=== PATIENT | male | born 1970 | race Caucasian/White ===

== ENCOUNTER 2021-02-01 18:26 | Inpatient (IN) | payer MEDICAID, OTHER ==
[~2021-02-01] VITALS: Ht 172.7 cm; Wt 114.3 kg
[~2021-02-01 18:26] MED LIST: CLOT15CR27 TP; HYDR4CRE2 TOP; INSU100V SUBCUT; INSU100V7 SQ; LACT1CAP69 PO; LOPE2CAP40 PO; MAG30ORA PO; METO-295 PO; MULT-1119 PO; PANT40TA2 PO; SITA100T PO; Vancomycin Hcl PO
--- NOTE | 2021-02-01 18:41 | NUR ---
PATIENT AND UNABLE TO PROVIDE INFORMATION ABOUT CURRENT HOME MEDICATIONS. PT'S STATED SHE WILL ATTEMPT TO GET THE INFORMATION.
--- NOTE | 2021-02-01 18:42 | NUR ---
PT IS IN ROOM #1A. DR BUCHANAN EVALUATED THE PT.
[2021-02-01] MEDS ORDERED: MORPHINE SULFATE 2 MG/1 ML DISP.SYRIN IV ONE (19:00)
[2021-02-01] MEDS ORDERED: FURO-151 PO (19:18)
[2021-02-01] MEDS ORDERED: MORPHINE SULFATE 4 MG/1 ML DISP.SYRIN ONE ×2 (19:20→20:05)
[2021-02-01] MEDS ORDERED: FERR325T28 PO (19:20)
[2021-02-01] MEDS ORDERED: POTA10CA43 PO (19:20)
[2021-02-01] MEDS ORDERED: GABA300C PO (19:21)
[2021-02-01] MEDS ORDERED: ATOR40TA PO (19:21)
[2021-02-01 19:24] LABS: BASOPHILS # (AUTO) 0.1 K/uL (0.0-8.0); BASOPHILS % (AUTO) 1.3 % (0.0-2.0); EOSINOPHILS # (AUTO) 0.6 K/uL (0.0-0.7); EOSINOPHILS % (AUTO) 8.2 % (0.0-7.0); HEMATOCRIT 31.8 % (36.7-47.1); HEMOGLOBIN 10.4 g/dL (12.5-16.3); LYMPHOCYTES # (AUTO) 1.7 K/uL (20.0-40.0); LYMPHOCYTES % (AUTO) 22.2 % (20.5-51.5); MEAN CORPUSCULAR HEMOGLOBIN 30.1 uug (23.8-33.4); MEAN CORPUSCULAR HGB CONC 33 g/dL (32.5-36.3); MEAN CORPUSCULAR VOLUME 91.9 fL (73.0-96.2); MONOCYTES # (AUTO) 0.6 K/uL (2.0-10.0); MONOCYTES % (AUTO) 7.4 % (0.0-11.0); NEUTROPHILS # (AUTO) 4.7 K/uL (1.8-8.9); NEUTROPHILS % (AUTO) 60.9 % (38.5-71.5); PLATELET COUNT (AUTO) 171 K/uL (152-348); RED BLOOD CELL COUNT(AUTO) 3.47 MIL/uL (4.06-5.63); WHITE BLOOD COUNT (AUTO) 7.8 K/uL (3.6-10.2)
[2021-02-01 19:36] LABS: BILIRUBIN,DIRECT 0.1 mg/dL (0.0-0.2); BILIRUBIN,TOTAL 0.2 mg/dL (0.2-1.0); CREATININE 3.7 mg/dL (0.6-1.3); POTASSIUM 4.4 mmol/L (3.5-5.1); TOTAL PROTEIN, SERUM 6.7 g/dL (6.4-8.2)
[2021-02-01] MEDS ORDERED: FUROSEMIDE 40 MG/4 ML VIAL IV ONE (20:00)
[2021-02-01] MEDS ORDERED: MORPHINE SULFATE 4 MG/1 ML DISP.SYRIN IV ONE (20:00)
[2021-02-01] MEDS ORDERED: ASPIRIN 81 MG TAB.CHEW PO ONE (20:00)
[2021-02-01] MEDS ORDERED: MAG HYDROX/AL HYDROX/SIMETH 30 ML LIQUID UDC PO ONE (20:00)
--- NOTE | 2021-02-01 20:00 | NUR ---
Patient transferred to Room 302 under the care of Ebony SEARS. Belongings with patient. VSS.
[2021-02-01] MEDS ORDERED: MAG HYDROX/AL HYDROX/SIMETH 30 ML LIQUID UDC ONE (20:05)
[2021-02-01] MEDS ORDERED: ONDANSETRON 4 MG/2 ML VIAL IV PRN (21:30)
[2021-02-01] MEDS ORDERED: Z GUARD REMEDY PASTE 57 GM TUBE TOP PRN (21:30)
[2021-02-01] MEDS ORDERED: METOCLOPRAMIDE HCL 10 MG TABLET PO PRN (21:30)
[2021-02-01] MEDS ORDERED: MAG HYDROX/AL HYDROX/SIMETH 30 ML LIQUID UDC PO PRN (21:30)
[2021-02-01] MEDS ORDERED: MAGNESIUM HYDROXIDE 30 ML LIQUID UDC PO PRN (21:30)
[2021-02-01] MEDS ORDERED: ZOLPIDEM 5 MG TABLET PO PRN (21:30)
[2021-02-01] MEDS ORDERED: ACETAMINOPHEN 325 MG TABLET PO PRN (21:30)
[2021-02-01 21:50] VITALS: BP 167/85
--- NOTE | 2021-02-01 21:50 | NUR ---
Admitted a 50 y/o male to telemetry with admitting diagnosis of volume overload with secondary diagnosis of ESRD. Pt denies any pain or discomfort, no s/s of respiratory distress. IV access intact and patent. Admission care rendered, safety measures initiated, call light within reach.
[2021-02-02] VITALS: BP 129/56
[2021-02-02] MEDS ORDERED: INSULIN REGULAR, HUMAN 300 UNIT/3 ML VIAL SQ PRN ×2 (03:30→12:30)
[2021-02-02] MEDS ORDERED: DEXTROSE 50% 50 ML DISP.SYRIN IV PRN ×2 (03:30→12:30)
[2021-02-02] MEDS: HYDROCODONE/APAP 5-325MG TABLET PO PRN ×2 (03:48→10:01)
[2021-02-02 04:00] VITALS: BP 130/56
[2021-02-02] MEDS: VANCOMYCIN FOR PO/GT/NG USE PO SCH ×5 (06:00→23:33)
--- NOTE | 2021-02-02 06:20 | NUR ---
Pt slept intermittently through the night. No s/s of respiratory distress on room air. NSR on tele at 78/min. IV access intact and patent. Pain medication given as ordered, medication tolerated well. Wound care done. Safety measures initiated, call light within reach, all needs attended.
[2021-02-02 06:28] LABS: BASOPHILS # (AUTO) 0.1 K/uL (0.0-8.0); BASOPHILS % (AUTO) 1.3 % (0.0-2.0); EOSINOPHILS # (AUTO) 0.5 K/uL (0.0-0.7); EOSINOPHILS % (AUTO) 9.2 % (0.0-7.0); HEMATOCRIT 25.5 % (36.7-47.1); HEMOGLOBIN 8.4 g/dL (12.5-16.3); LYMPHOCYTES # (AUTO) 1.6 K/uL (20.0-40.0); LYMPHOCYTES % (AUTO) 28.3 % (20.5-51.5); MEAN CORPUSCULAR HEMOGLOBIN 30.7 uug (23.8-33.4); MEAN CORPUSCULAR HGB CONC 33 g/dL (32.5-36.3); MEAN CORPUSCULAR VOLUME 92.8 fL (73.0-96.2); MONOCYTES # (AUTO) 0.5 K/uL (2.0-10.0); MONOCYTES % (AUTO) 8.7 % (0.0-11.0); NEUTROPHILS # (AUTO) 3.1 K/uL (1.8-8.9); NEUTROPHILS % (AUTO) 52.5 % (38.5-71.5); PLATELET COUNT (AUTO) 146 K/uL (152-348); RED BLOOD CELL COUNT(AUTO) 2.75 MIL/uL (4.06-5.63); WHITE BLOOD COUNT (AUTO) 5.8 K/uL (3.6-10.2)
[2021-02-02 06:42] LABS: CREATININE 4.1 mg/dL (0.6-1.3); MAGNESIUM 2.3 mg/dL (1.8-2.4); PHOSPHOROUS 5.2 mg/dL (2.5-4.9); POTASSIUM 4.2 mmol/L (3.5-5.1)
[2021-02-02] MEDS: BLOOD SUGAR DIAGNOSTIC 1 EACH STRIP VI SCH ×4 (07:32→21:05)
[2021-02-02] MEDS ORDERED: INSULIN REGULAR, HUMAN 300 UNIT/3 ML VIAL SQ SCH (08:00)
[2021-02-02] MEDS ORDERED: INSULIN LISPRO 1000 UNITS/10 ML VIAL(HUMALOG) SQ SCH (08:00)
--- NOTE | 2021-02-02 08:00 | NUR ---
received change of shift report on pt. c/o diarrhea x2 days, pain on the lower legs,,pain medication given as prescribed. awake alert and oriented x4, on room air, NSR on tele monitor, no signs of distress, pt ambulatory, urinal at bedside, BRP, pt had cassandra lower leg wounds, dressings clean dry and intact. IV access on the left FA 20g SL. bed in low and locked position, call light within reach.
[2021-02-02] MEDS ORDERED: CLOTRIMAZOLE 1% CREAM 30 GM TUBE TP SCH (09:00)
[2021-02-02] MEDS ORDERED: POTASSIUM CHLORIDE 10 MEQ TAB.PRT.SR PO SCH ×2 (09:00)
[2021-02-02] MEDS ORDERED: [UNRECOGNIZED DRUG - OTHER] TOP SCH (09:00)
[2021-02-02] MEDS ORDERED: INSULIN GLARGINE,HUM 300 UNITS/3 ML CARTRIDGE SQ SCH (09:00)
[2021-02-02] MEDS ORDERED: LINAGLIPTIN 5 MG TABLET PO SCH (09:00)
[2021-02-02] MEDS ORDERED: PRAMOXINE HCL TOP SCH (09:00)
[2021-02-02] MEDS: FUROSEMIDE 40 MG/4 ML VIAL IV SCH (09:08)
[2021-02-02] MEDS: FERROUS SULFATE 325 MG TABEC PO SCH (09:08)
[2021-02-02] MEDS: GABAPENTIN 300 MG CAPSULE PO SCH (09:08)
[2021-02-02] MEDS: CULTURELLE CAPSULE PO SCH ×2 (09:08→17:25)
[2021-02-02] MEDS: PANTOPRAZOLE SODIUM 40 MG TABLET.DR PO SCH (09:08)
[2021-02-02] MEDS: MULTIVITAMINS,THERAPEUTIC TABLET PO SCH (09:08)
--- NOTE | 2021-02-02 10:00 | NUR ---
IV access infiltrated, removed and new access on the right FA 20g SL. Addendum: 02/02/21 at 1256 by ERVIN VINES RN 22g
[2021-02-02 11:40] VITALS: BP 139/74
[2021-02-02] MEDS ORDERED: SORBITOL 70% SOLUTION 30 ML UDC PO ONE (12:15)
[2021-02-02] MEDS ORDERED: LACTULOSE 20 G/30 ML LIQUID UDC PO ONE (12:15)
--- NOTE | 2021-02-02 12:17 | NUR ---
WOUND CARE CONSULT: PT PRESENTS WITH DIABETIC ULCERS TO FEET, PRESENT ON ADMISSION. DPM CONSULT WAS CALLED TO DR AVILA BY CARL DOMINGUEZ DNP. PT IS INDEPENDENT WITH BED MOBILITY AND IS CONTINENT. WILL SEE PRN.
[2021-02-02 15:42] LABS: *OCCULT BLOOD STOOL POSITIVE (NEGATIVE)
[2021-02-02 16:00] VITALS: BP 134/71
[2021-02-02] MEDS: ATORVASTATIN 40 MG TABLET PO SCH (17:25)
--- NOTE | 2021-02-02 18:41 | NUR ---
pt in bed resting, awake alert and oriented x4. pt has cassandra wounds on feet covered with dressing, dry, clean and intact. NSR on tele monitor, on room air, pt ambulatory, BRP, stool sample collected, IV access on the right forarm 22g SL intact, patent. pt to have CT C/A/P with contrast 02/03 at 0800 before dialysis. bed in low and locked position, call light within reach, will endorse to oncoming nurse.
--- NOTE | 2021-02-02 20:00 | NUR ---
AWAKE,ALERT COOPERATIVE, KNOWS HE IS GOING FOR CT OF ABDOMEN AND CHEST BILATERAL LEG SWOLLEN WITH DRESSING NOTED,NPO AFTER MIDNITE TOLD PATIENT,HAD 2 DIARHEA
[2021-02-02 20:04] VITALS: BP 123/75
[2021-02-02 20:48] LABS: FERRITIN 291 ng/mL (26-388)
[2021-02-02 20:49] LABS: IRON, SERUM 24 ug/dL (50-175)
[2021-02-02] MEDS: INSULIN GLARGINE,HUM 300 UNITS/3 ML CARTRIDGE SQ SCH (21:04)
[2021-02-03 00:04] VITALS: BP 154/99
[2021-02-03 04:00] VITALS: BP 103/69
[2021-02-03 04:04] VITALS: BP 121/55
[2021-02-03] MEDS: VANCOMYCIN FOR PO/GT/NG USE PO SCH ×4 (06:26→23:54)
[2021-02-03] MEDS: PANTOPRAZOLE SODIUM 40 MG TABLET.DR PO SCH (06:26)
[2021-02-03] MEDS: BLOOD SUGAR DIAGNOSTIC 1 EACH STRIP VI SCH ×4 (06:28→21:29)
[2021-02-03 06:50] LABS: BASOPHILS # (AUTO) 0.1 K/uL (0.0-8.0); BASOPHILS % (AUTO) 1.3 % (0.0-2.0); EOSINOPHILS # (AUTO) 0.5 K/uL (0.0-0.7); EOSINOPHILS % (AUTO) 8.6 % (0.0-7.0); HEMATOCRIT 28.5 % (36.7-47.1); HEMOGLOBIN 9.4 g/dL (12.5-16.3); LYMPHOCYTES # (AUTO) 1.4 K/uL (20.0-40.0); MEAN CORPUSCULAR HEMOGLOBIN 30.8 uug (23.8-33.4); MEAN CORPUSCULAR HGB CONC 33 g/dL (32.5-36.3); MEAN CORPUSCULAR VOLUME 93.3 fL (73.0-96.2); MONOCYTES # (AUTO) 0.4 K/uL (2.0-10.0); MONOCYTES % (AUTO) 7.1 % (0.0-11.0); NEUTROPHILS # (AUTO) 3.2 K/uL (1.8-8.9); PLATELET COUNT (AUTO) 172 K/uL (152-348); RED BLOOD CELL COUNT(AUTO) 3.06 MIL/uL (4.06-5.63); WHITE BLOOD COUNT (AUTO) 5.4 K/uL (3.6-10.2)
--- NOTE | 2021-02-03 06:59 | NUR ---
BLOOD SUGAR 65 CHECKED AFTER 15 MINUTES 73 PT FELT WEAK THIRD ACCUCHECH 77. STILL COMPLAINING OF NOT FEELING GOOD, FIRST TIME TO HAVE BLOOOD SUGAR IS TOO LOW VERBALIZED. PT IS NPO FOR CAT SCAN OF ABDOMEN AND CHEST.WANTED TO EAT.BUT NPO SO D50 GIVEN.
[2021-02-03 07:06] LABS: HEPATITIS B SURFACE AB Non Reactive (.); HEPATITIS B SURFACE AG Negative (Negative)
[2021-02-03 07:26] LABS: THYROID STIMULATING HORMONE 0.975 mIU/mL (0.358-3.740)
[2021-02-03 07:44] LABS: MAGNESIUM 2.4 mg/dL (1.8-2.4); PHOSPHOROUS 6.2 mg/dL (2.5-4.9); POTASSIUM 4.3 mmol/L (3.5-5.1)
[2021-02-03] MEDS ORDERED: IOHEXOL 300MG/ML 100 ML INFUS..BTL ONE (08:08)
[2021-02-03] MEDS ORDERED: IV NORMAL SALINE 250 ML IV ONE (08:08)
[2021-02-03] MEDS ORDERED: SWABABLE VALVE TRANSFER SET EA MC ONE (08:08)
[2021-02-03] MEDS: INSULIN GLARGINE,HUM 300 UNITS/3 ML CARTRIDGE SQ SCH (09:00)
[2021-02-03] MEDS ORDERED: DIATR MEGLU/DIATRIZOATE SODIUM 30 ML BOTTLE ONE (09:14)
[2021-02-03] MEDS ORDERED: BARIUM SULFATE 450 ML ORAL.SUSP ONE (09:14)
--- NOTE | 2021-02-03 09:15 | NUR ---
PATIENT IS AWAKE ALERT AND ORIENTED REMAINS NPO AND IS TAKING HIS ORAL CONTRAST WAS GIVEN BY THE RADIOLOGY DEPT AWAITING FOR HIS CT OF THE ABDOMEN AND PELVIS ORDERED AND WILL ADMINISTER HIS AM MEDICATIONS SOON THE CT TESTS ARE DONE ORDERED
--- NOTE | 2021-02-03 10:33 | NUR ---
PATIENT PICKED UP BY W/CHAIR TO THE RADIOLOGY FOR CT SCAN TESTS ORDERED.
[2021-02-03] MEDS: MULTIVITAMINS,THERAPEUTIC TABLET PO SCH (11:16)
[2021-02-03] MEDS: GABAPENTIN 300 MG CAPSULE PO SCH (11:16)
[2021-02-03] MEDS: FERROUS SULFATE 325 MG TABEC PO SCH (11:16)
[2021-02-03] MEDS: FUROSEMIDE 40 MG/4 ML VIAL IV SCH (11:17)
[2021-02-03] MEDS: CULTURELLE CAPSULE PO SCH ×2 (11:17→17:44)
[2021-02-03] MEDS: HYDROCODONE/APAP 5-325MG TABLET PO PRN (11:19)
[2021-02-03 12:00] VITALS: BP 170/79
--- NOTE | 2021-02-03 12:00 | NUR ---
STONE DRESSER HERE AND DIALYSIS STARTED ORDERED PERMA CATH RIGHT UPPER CHEST REMAIN INTACT AT THIS TIME
--- NOTE | 2021-02-03 13:00 | NUR ---
CALL RECEIVED FROM PATIENTS STATED THAT PATIENT CALLED HIM AND STATED THAT HE WANTED TO GO TO THE BATHROOM TO MOVE HIS BOWEL BUT WAS NOT ALLOWED TO SHE WAS VERY ANGRY AND STATED THAT HER WILL PULL OUT HIS DIALYSIS CATH AND WILL LEAVE THE HOSPITAL IF WE DO NOT ALLOW HIM TO GO USE THE BATHROOM AND SHE ALSO WENT FAR SAYING THAT IF ANYTHING HAPPENS TO HER THEN HIS BLOOD WILL BE ON MY HANDS SO I TRIED MY BEST TO CALM HER DOWN AND ASKED HER IF SHE COULD GIVE ME A CHANCE TO GO AND CHECK TO SEE WHAT WAS GOING ON IN THE ROOM AND THE PATIENT IS IN THE ROOM HAVING DIALYSIS.CONTINUED TO SCREAM AT ME SO I FINALLY HUNG UP THE PHONE AND RAN INTO THE ROOM AND PATIENT STATED TO ME THAT HE WANTED TO USE THE TOILET SO I OFFERED HIM A BEDPAN INSTEAD SINCE HE WAS IN THE MIDDLE OF THE DIALYSIS BUT HE DECLINED AND STATED THAT HE WANTED THE DIALYSIS STOPPED.SO DIALYSIS STOPPED AT THIS TIME AND PATIENT ASSISTED INTO THE TOILET.PER THE CONSUMER PRODUCT ADVISOR HE REMOVED ONE LITER OF FLUID AT THIS TIME.
--- NOTE | 2021-02-03 14:49 | NUR ---
PATIENT SEEN AND EXAMINED BY CARL DOMINGUEZ DNP WITH NO NEW ORDERS AT THIS TIME SHE IS AWARE THAT PATIENT WILL NOT ALLOW THE TOWER SUPERVISOR TO FINISH DIALYSIS HE ONLY HAD DIALYSIS FOR ONE HOUR AND ONE LITER REMOVED.
--- NOTE | 2021-02-03 15:40 | NUR ---
DR VISHAL GUZMAN HERE SEEN PATIENT DID A BEDSIDE DEBRIDEMENT WITH NEW TX ORDERS ALSO CULTURE OFTHE WOUNDS SENT ORDERED.
[2021-02-03 15:53] VITALS: BP 134/80
--- NOTE | 2021-02-03 16:20 | NUR ---
BLOOD SUGAR AT THIS TIME IS 69 PATIENT IS ALERT ORIENTED AND VERBALLY RESPONSIVE GAVE HIM SOME CRACKERS AND APPLE JUICE AND HE TOLERATED WELL WILL RECHECK HIS BLOOD SUGAR.
[2021-02-03] MEDS: ATORVASTATIN 40 MG TABLET PO SCH (17:44)
--- NOTE | 2021-02-03 17:57 | NUR ---
BLOOD SUGAR AT THIS TIME IS 83 PATIENT IS ALERT AND ORIENTED DENIES DISCOMFORTS HAS NO S/S OF HYPOGLYCEMIC REACTIONS AT THIS TIME EATING HIS DINNER
--- NOTE | 2021-02-03 20:00 | NUR ---
AWAKE,ALERT COOPERATIVE, NO COMPLAINTS OF PAIN, LOWER EXTREMITIES WOUND COVERED WITH HIMANSHU WRAP. SNACKS GIVEN
[2021-02-03 20:21] VITALS: BP 146/80
[2021-02-04] VITALS: BP 145/71
[2021-02-04 04:00] VITALS: BP 117/59
[2021-02-04] MEDS: HYDROCODONE/APAP 5-325MG TABLET PO PRN (04:14)
--- NOTE | 2021-02-04 05:36 | NUR ---
slept most of the nite,medicated for abdominal pain with norco x1 in no acute distress.
[2021-02-04] MEDS: VANCOMYCIN FOR PO/GT/NG USE PO SCH ×3 (06:00→17:07)
[2021-02-04 06:23] LABS: BASOPHILS # (AUTO) 0.1 K/uL (0.0-8.0); BASOPHILS % (AUTO) 1.8 % (0.0-2.0); EOSINOPHILS # (AUTO) 0.4 K/uL (0.0-0.7); EOSINOPHILS % (AUTO) 8.7 % (0.0-7.0); HEMATOCRIT 27.7 % (36.7-47.1); HEMOGLOBIN 8.9 g/dL (12.5-16.3); LYMPHOCYTES # (AUTO) 1.3 K/uL (20.0-40.0); MEAN CORPUSCULAR HEMOGLOBIN 29.8 uug (23.8-33.4); MEAN CORPUSCULAR HGB CONC 32 g/dL (32.5-36.3); MEAN CORPUSCULAR VOLUME 93.3 fL (73.0-96.2); MONOCYTES # (AUTO) 0.4 K/uL (2.0-10.0); MONOCYTES % (AUTO) 7.6 % (0.0-11.0); NEUTROPHILS # (AUTO) 2.7 K/uL (1.8-8.9); NEUTROPHILS % (AUTO) 54.9 % (38.5-71.5); PLATELET COUNT (AUTO) 166 K/uL (152-348); RED BLOOD CELL COUNT(AUTO) 2.97 MIL/uL (4.06-5.63); WHITE BLOOD COUNT (AUTO) 4.9 K/uL (3.6-10.2)
[2021-02-04 06:29] LABS: CREATININE 5.2 mg/dL (0.6-1.3); POTASSIUM 4.4 mmol/L (3.5-5.1)
[2021-02-04 08:00] VITALS: BP 144/60
[2021-02-04] MEDS: BLOOD SUGAR DIAGNOSTIC 1 EACH STRIP VI SCH ×4 (08:11→21:08)
[2021-02-04] MEDS: PANTOPRAZOLE SODIUM 40 MG TABLET.DR PO SCH (08:12)
[2021-02-04] MEDS: GABAPENTIN 300 MG CAPSULE PO SCH (08:39)
[2021-02-04] MEDS: MULTIVITAMINS,THERAPEUTIC TABLET PO SCH (08:39)
[2021-02-04] MEDS: FERROUS SULFATE 325 MG TABEC PO SCH (08:39)
[2021-02-04] MEDS: CULTURELLE CAPSULE PO SCH ×2 (08:39→17:07)
[2021-02-04] MEDS ORDERED: LORAZEPAM 2 MG/1 ML VIAL IV PRN (11:15)
--- NOTE | 2021-02-04 12:31 | NUR ---
RECEIVED ORDER FROM ANGELICA FOR MIDLINE BECAUSE PATIENT WILL BE ON FERRILICT PER DR JEONG ORDER WESLEY NOTIFIED AND ORDERED PER WESLEY THE MIDLINE NURSE WILL BE HERE ABOUT 1430
--- NOTE | 2021-02-04 12:54 | NUR ---
DIALYSIS IN PROGRESS AT THIS TIME ORDERED ATIVAN WAS GIVEN PRIOR TO STARTING DIALYSIS ORDERED.
[2021-02-04] MEDS: SOD FERRIC GLUC COMPLX/SUCROSE 125 MG in IV NORMAL SALINE 100 ML IV SCH (14:47)
--- NOTE | 2021-02-04 15:00 | NUR ---
PATIENT IS SLEEPING ON AND OFF STATED FEELS BETTER WITH THE ATIVAN MIDLINE INSERTED ORDERED PATENT FLUSHED PER PROTOCOL DIALYSIS COMPLETED ORDERED AND 2000 ML REMOVED PATIENT TOLERATED PROCEDURE WELL.
--- NOTE | 2021-02-04 15:30 | NUR ---
SEEN BY CARL DOMINGUEZ DNP WITH NO NEW ORDERS AT THIS TIME.
[2021-02-04 16:15] VITALS: BP 135/63
[2021-02-04] MEDS: FUROSEMIDE 40 MG/4 ML VIAL IV SCH (17:07)
[2021-02-04] MEDS: ATORVASTATIN 40 MG TABLET PO SCH (17:07)
--- NOTE | 2021-02-04 18:47 | NUR ---
PATIENT INFORMED OF ORDER FOR MRI OF HIS LEFT FOOT TO RULE OUT OSTEO AND HE CONSCENTED.AWAITING FOR CALL FROM THE MRI TO SCHEDULE.
--- NOTE | 2021-02-04 19:30 | NUR ---
AWAKE, ALERT X3 DR ARIZA EXPLAINED THE PROCEDURES TO THE PATIENT.PATIENT UNDERSTOOD THE EXPLANATION.RESTING COMFORTABLY,NO COMPLAINTS MADE.
[2021-02-04 20:32] VITALS: BP 155/69
[2021-02-05] MEDS: VANCOMYCIN FOR PO/GT/NG USE PO SCH ×4 (00:21→17:24)
[2021-02-05] MEDS: HYDROCODONE/APAP 5-325MG TABLET PO PRN ×4 (00:25→20:37)
[2021-02-05 00:54] VITALS: BP 151/72
[2021-02-05 05:24] VITALS: BP 126/51
[2021-02-05] MEDS: PANTOPRAZOLE SODIUM 40 MG TABLET.DR PO SCH (06:09)
[2021-02-05] MEDS: BLOOD SUGAR DIAGNOSTIC 1 EACH STRIP VI SCH ×3 (06:25→16:44)
--- NOTE | 2021-02-05 06:42 | NUR ---
SLEPT AT SHORT INTERVALS.MEDICATED I NORCO FOR ABDOMINAL PAIN. NO LOOSE BOWEL NOTED.
[2021-02-05 06:57] LABS: BASOPHILS # (AUTO) 0.1 K/uL (0.0-8.0); BASOPHILS % (AUTO) 1.5 % (0.0-2.0); EOSINOPHILS # (AUTO) 0.4 K/uL (0.0-0.7); EOSINOPHILS % (AUTO) 9.1 % (0.0-7.0); HEMATOCRIT 26.3 % (36.7-47.1); HEMOGLOBIN 8.4 g/dL (12.5-16.3); LYMPHOCYTES # (AUTO) 1.6 K/uL (20.0-40.0); LYMPHOCYTES % (AUTO) 35.3 % (20.5-51.5); MEAN CORPUSCULAR HEMOGLOBIN 29.7 uug (23.8-33.4); MEAN CORPUSCULAR HGB CONC 32 g/dL (32.5-36.3); MEAN CORPUSCULAR VOLUME 92.9 fL (73.0-96.2); MONOCYTES # (AUTO) 0.4 K/uL (2.0-10.0); MONOCYTES % (AUTO) 8.5 % (0.0-11.0); NEUTROPHILS # (AUTO) 2.1 K/uL (1.8-8.9); NEUTROPHILS % (AUTO) 45.6 % (38.5-71.5); PLATELET COUNT (AUTO) 140 K/uL (152-348); RED BLOOD CELL COUNT(AUTO) 2.83 MIL/uL (4.06-5.63); WHITE BLOOD COUNT (AUTO) 4.7 K/uL (3.6-10.2)
[2021-02-05 07:04] LABS: CREATININE 4.7 mg/dL (0.6-1.3); POTASSIUM 4.3 mmol/L (3.5-5.1)
--- NOTE | 2021-02-05 08:00 | NUR ---
CALL RECEIVED FROM VANDANA STATED THAT HE HAS OPENING FOR THE PATIENT FOR THE MRI AT 1000 TODAY ORDERED WILL CALL THE AMBULANCE
[2021-02-05] MEDS: MULTIVITAMINS,THERAPEUTIC TABLET PO SCH (08:12)
[2021-02-05] MEDS: GABAPENTIN 300 MG CAPSULE PO SCH (08:12)
[2021-02-05] MEDS: FERROUS SULFATE 325 MG TABEC PO SCH (08:12)
[2021-02-05] MEDS: CULTURELLE CAPSULE PO SCH ×2 (08:12→16:44)
[2021-02-05] MEDS: FUROSEMIDE 40 MG/4 ML VIAL IV SCH (08:13)
--- NOTE | 2021-02-05 08:30 | NUR ---
UNABLE TO ARRANGE THE AMBULANCE FOR LIGHTNING ROD INSTALLER PER THE [facility] THEY WILL BE ABLE TO LIGHTNING ROD INSTALLER PATIENT AT 1000 AND WILL LIKELY GET HIM THERE BY [phone] CALLED VANDANA AND NOTIFIED HIM STATED IT WAS OKAY PATIENT AWARE CONSENTS FOR THE MRI AND THE MRI AND THE CONTRAST OBTAINED AND DOCUMENTED.
[2021-02-05 09:09] LABS: *BILIRUBIN,URIN NEGATIVE (NEGATIVE); *BLOOD, URINE 1+ (NEGATIVE); *CLARITY,URINE CLEAR (CLEAR); *COLOR,URINE YELLOW (YELLOW); *KETONES,URINE NEGATIVE (NEGATIVE); *UROBILINOGEN,URINE 0.2 E.U./dl (NORMAL); LEUKOCYTE ESTERASE ,URINE NEGATIVE (NEGATIVE); NITRITE, URINE NEGATIVE (NEGATIVE); PH,URINE 8.5 (5.0-8.0)
[2021-02-05 09:10] LABS: UGLUCOSE 1+ (NEGATIVE)
[2021-02-05 09:14] LABS: RBC,URINE 0-3 /HPF (0-3); WBC,URINE 0-3 /HPF (0-3)
[2021-02-05 09:15] LABS: BACTERIA,URINE NONE SEEN /HPF (NONE SEEN); SQUAMOUS EPITHELIAL CELL,UR FEW /HPF (NONE SEEN); URINE AMORPHOUS PHOSPHATES FEW /HPF
--- NOTE | 2021-02-05 09:42 | NUR ---
PATIENT STATED HAS PAIN IN HIS LOWER EXT MEDICATED WITH NORCO ORDERED MADE COMFORTABLE WILL CONTINUE TO OBSERVE.
--- NOTE | 2021-02-05 10:14 | NUR ---
CALL RECEIVED FROM BEVERLY THE DETASSELING CREW SUPERVISOR RE BIOPSY OF THE RIGHT GROIN NODULE NOTIFIED HIM THAT ITS UNLIKELY THAT IT WILL BE DONE TODAY BECAUSE FIRST OF PATIENT WILL BE GOING TO THOR MRI ORDERED AND DR ARIZA HAS STATED TO THE NOC RN THAT SHE WILL NEED TO SCHEDULE THE BIOPSY WITH THE RADIOLOGIST AND BEING THAT THE PATIENT HAS MRI TODAY AND HAS NOT EVEN SIGNED THE CONSCENT BEVERLY STATED OKAY WILL CHECK IN LATER.
--- NOTE | 2021-02-05 10:55 | NUR ---
PATIENT PICKED UP BY [facility] ORDERED IN SATISFACTORY CONDITION
--- NOTE | 2021-02-05 12:47 | NUR ---
CALL RECEIVED FROM [facility] LOG LOADER STATED THAT BECAUSE THEY ARE GIVING PATIENT IV CONTRAST PATIENT WILL NEED TO HAVE DIALYSIS BY TOMORROW SO I CALLED SANGITA THE SALES SYSTEMS ENGINEER SPOKE WITH HIM AND HE STATED THAT HE ALREADY SPOKE WITH DR ZAMUDIO AND HE OKAYED DIALYSIS FOR TOMORROW WILL TRY TO COME EARLY POSSIBLE TO DO THE DIALYSIS.PATIENT STILL AT [facility] AT THIS TIME
--- NOTE | 2021-02-05 13:30 | NUR ---
PATIENT RETURNED FROM [facility] BACK TO HIS ROOM IN NO DISTRESS AT THIS TIME.
[2021-02-05] MEDS: SOD FERRIC GLUC COMPLX/SUCROSE 125 MG in IV NORMAL SALINE 100 ML IV SCH (14:11)
[2021-02-05 14:17] LABS: *URINE HCG, QUAL NEGATIVE
[2021-02-05 16:00] VITALS: BP 144/68
[2021-02-05] MEDS: ATORVASTATIN 40 MG TABLET PO SCH (17:23)
--- NOTE | 2021-02-05 17:30 | NUR ---
SPOKE WITH PATIENT RE BIOPSY ORDERED BY DR ARIZA HE STATED THAT HE IS WAITING FOR HIS TO DECIDE WEATHER HE SHOULD HAVE THE BIOPSY OR NOT BUT STATED THAT HIS WILL NOT BE AVAILABLE UNTIL LATER INFORMED HIM THAT ITS IMPORTANT THAT HE DECIDES AND SIGN THE CONSCENT IF HE WANTS THE PROCEDURE TO ENABLE ALL THE PARTICIPANTS TO BE AVAILABLE HE EXPRESSED UNDERSTANDING.
--- NOTE | 2021-02-05 18:07 | NUR ---
STEPH JEONG FORWARDER OPERATOR HERE AND TALKING TO THE PATIENT RE HIS DECISION ON THE RIGHT INGUINAL BIOPSY AND PATIENT STATED THAT HIS IS NOT AVAILABLE AND SHE HAS TO DECIDE IF HE SHOULD HAVE THE PROCEDURE OR NOT STEPH SPOKE WITH DR ARIZA AND PER STEPH WILL SEND A MESSAGE TO NILE DOMINGUEZ RE PATIENTS REFUSAL AT THIS TIME.
[2021-02-05] MEDS ORDERED: LEVO500T90 PO ×2 (18:33→20:35)
[2021-02-05] MEDS ORDERED: INSU100V28 SQ ×2 (18:33→20:35)
[2021-02-05] MEDS ORDERED: Blood Sugar Diagnostic VI (18:33)
[2021-02-05 20:00] VITALS: BP 163/84
[2021-02-05] MEDS ORDERED: GADOTERATE MEGLUMINE 5 MMOL/10 ML VIAL IV ONE (21:29)
--- NOTE | 2021-02-05 21:58 | NUR ---
Updated patient's pharmacy and informed Dr Gallardo; Pt's wound dressing done and photos taken; instructed pt on how to change dressing and some home supplies given to him; discharge paper works and copies of MRI given to him per insurance instructions; Midline removed and no bleeding noted; [place] given; pt is discharged in improved condition via wheelchair to 's car; Dr Gandhi called and have the biopsy in AM cancelled. Dr Gandhi aware of patient's discharge.
[2021-02-06 08:06] LABS: *IMMUNOGLOBULIN G, SERUM 1390 mg/dL (603-1613); IMMUNOGLOBULIN A, SERUM 325 mg/dL (90-386); IMMUNOGLOBULIN M, SERUM 65 mg/dL (20-172)
[2021-02-06 12:07] LABS: A/G RATIO 0.5 (0.7-1.7); ALBUMIN 1.9 g/dL (2.9-4.4); ALPHA-1-GLOBULIN 0.3 g/dL (0.0-0.4); BETA GLOBULIN 0.8 g/dL (0.7-1.3); GAMMA GLOBULIN 1.4 g/dL (0.4-1.8); GLOBULIN, TOTAL 3.5 g/dL (2.2-3.9); M-SPIKE Not Observed g/dL (Not Observed)
[2021-02-09 13:25] LABS: AFP, TUMOR MARKER 1
== END 2021-02-05 21:30 | disposition home or self-care (01) | DRG 254 ==
LOC: ER 18:26 → TELE3 21:05
PROVIDERS: ADMIT Nurse Practitioner Acute Care; ATTEND Nurse Practitioner Acute Care
PROC: 5A1D70Z Performance of Urinary Filtration, Intermittent, Less than 6 Hours Per Day (ICD-10-PCS; principal; 2021-02-03)
PROC: 0JBR0ZZ Excision of Left Foot Subcutaneous Tissue and Fascia, Open Approach (ICD-10-PCS; principal; 2021-02-03)
PROC: 0JBQ0ZZ Excision of Right Foot Subcutaneous Tissue and Fascia, Open Approach (ICD-10-PCS; principal; 2021-02-03)
PROC: B546ZZA Ultrasonography of Right Subclavian Vein, Guidance (ICD-10-PCS; 2021-02-04)
PROC: 05H533Z Insertion of Infusion Device into Right Subclavian Vein, Percutaneous Approach (ICD-10-PCS; 2021-02-04)
DX: K59.00 Constipation, unspecified (principal); I13.2 Hypertensive heart and chronic kidney disease with heart failure and with stage 5 chronic kidney disease, or end stage renal disease; E11.22 Type 2 diabetes mellitus with diabetic chronic kidney disease; E11.42 Type 2 diabetes mellitus with diabetic polyneuropathy; D69.59 Other secondary thrombocytopenia; N18.6 End stage renal disease; E11.621 Type 2 diabetes mellitus with foot ulcer; Z99.2 Dependence on renal dialysis; Z79.4 Long term (current) use of insulin; Z20.822 Contact with and (suspected) exposure to COVID-19; E11.69 Type 2 diabetes mellitus with other specified complication; M86.8X7 Other osteomyelitis, ankle and foot; L97.528 Non-pressure chronic ulcer of other part of left foot with other specified severity; L97.519 Non-pressure chronic ulcer of other part of right foot with unspecified severity; E88.09 Other disorders of plasma-protein metabolism, not elsewhere classified; G89.29 Other chronic pain; M21.179 Varus deformity, not elsewhere classified, unspecified ankle; Z88.0 Allergy status to penicillin; R16.1 Splenomegaly, not elsewhere classified; R59.1 Generalized enlarged lymph nodes; E04.9 Nontoxic goiter, unspecified; I87.8 Other specified disorders of veins; D64.9 Anemia, unspecified; R19.7 Diarrhea, unspecified; I50.9 Heart failure, unspecified
CPT/HCPCS: 36415; 70030-TC; 71045; 71260; 73610; 73630; 73723; 82105; 82378; 82747; 82784; 83550; 83605; 83615; 83690; 83735; 84100; 84153; 84155; 84165; 84443; 84703; 85014; 85025; 85610; 85651; 85730; 86140; 86334; 86706; 87046; 87070; 87077; 87340; 89055; 90937; 93005; A4663; A9575; G0378; J1815; J1940; J2060; J2270; J2916; J3370; J3490; J7030; J7050; Q9951; Q9963; Q9967

== ENCOUNTER 2022-08-08 17:29 | Inpatient (IN) | payer MEDICAID ==
[~2022-08-08] VITALS: Ht 172.7 cm; Wt 101.8 kg
[~2022-08-08 17:29] MED LIST changes: +ATOR40TA PO; +Blood Sugar Diagnostic VI; -CLOT15CR27 TP; +FERR325T28 PO; +FURO-151 PO; +GABA300C PO; -HYDR4CRE2 TOP; -INSU100V SUBCUT; +INSU100V28 SQ; -INSU100V7 SQ; +LEVO500T90 PO; -LOPE2CAP40 PO; -MAG30ORA PO; -METO-295 PO; +POTA10CA43 PO; +levoFLOXacin 500 MG TABLET PO ONE
[2022-08-08 18:33] LABS: MEAN CORPUSCULAR HEMOGLOBIN 31.4 uug (23.8-33.4); MEAN CORPUSCULAR VOLUME 94.7 fL (73.0-96.2); PLATELET COUNT (AUTO) 144 K/uL (152-348)
[2022-08-08 18:37] LABS: HEMATOCRIT 12.9 % (36.7-47.1)
[2022-08-08 18:38] LABS: CARBON DIOXIDE 19 mmol/L (21-32); CHLORIDE 106 mmol/L (98-107); GLUCOSE 135 mg/dL (74-106)
[2022-08-08 18:41] LABS: CREATININE 17.5 mg/dL (0.6-1.3); POTASSIUM 7.7 mmol/L (3.5-5.1); UREA NITROGEN, BLOOD 195 mg/dL (7-18)
[2022-08-08] MEDS ORDERED: SODIUM POLYSTYRENE SULFONATE 15 G/60 ML LIQUID UDC PO ONE (18:45)
[2022-08-08] MEDS ORDERED: CALCIUM GLUCONATE IV 1 GM in IV NORMAL SALINE 100 ML IV ONE (18:45)
[2022-08-08] MEDS ORDERED: DEXTROSE IV ONE ×2 (18:45)
[2022-08-08] MEDS ORDERED: INSULIN REGULAR IV ONE ×2 (18:45)
[2022-08-08] MEDS ORDERED: HUMAN IV ONE ×2 (18:45)
[2022-08-08] MEDS ORDERED: ALBUTEROL SULFATE 2.5 MG/3 ML NEBU NEB ONE (18:45)
[2022-08-08 18:47] LABS: ALANINE AMINOTRANSFERASE 38 U/L (16-63); ALKALINE PHOSPHATASE 80 U/L (50-136); ASPARTATE AMINOTRANSFERASE 24 U/L (15-37); BILIRUBIN,DIRECT 0.2 mg/dL (0.0-0.2); BILIRUBIN,TOTAL 0.4 mg/dL (0.2-1.0); LIPASE 144 U/L (73-393); TOTAL PROTEIN, SERUM 6.9 g/dL (6.4-8.2)
[2022-08-08] MEDS ORDERED: PANTOPRAZOLE SODIUM 40 MG VIAL IV ONE (19:15)
[2022-08-08] MEDS ORDERED: ALBUTEROL SULFATE 2.5 MG/3 ML NEBU ONE (19:16)
--- NOTE | 2022-08-08 19:20 | NUR ---
Change of shift report recieved from Araceli SEARS.
[2022-08-08] MEDS ORDERED: PANTOPRAZOLE SODIUM 40 MG VIAL ONE (19:28)
[2022-08-08] MEDS ORDERED: CALCIUM GLUCONATE 1 GM/10 ML VIAL IV ONE (19:28)
[2022-08-08] MEDS ORDERED: SODIUM POLYSTYRENE SULFONATE 15 G/60 ML LIQUID UDC ONE (19:30)
[2022-08-08] MEDS ORDERED: SODIUM BICARBONATE IV ONE (20:00)
[2022-08-08] MEDS ORDERED: D5W IV ONE (20:00)
[2022-08-08] MEDS ORDERED: SODIUM BICARBONATE 8.4% 50 MEQ/50 ML DISP.SYRIN IV ONE (20:00)
[2022-08-08 20:08] LABS: HEMATOCRIT 12.9 % (36.7-47.1)
--- NOTE | 2022-08-08 20:38 | NUR ---
Called [facility] for panel call.
--- NOTE | 2022-08-08 21:50 | NUR ---
Blood tranfusion started.
--- NOTE | 2022-08-08 21:57 | NUR ---
Called [facility] for Dr. Dietrich per Dr. Kerr's request.
[2022-08-08] MEDS ORDERED: INSULIN REGULAR, HUMAN 300 UNITS/3 ML VIAL SQ PRN (23:00)
[2022-08-08] MEDS ORDERED: REMEDY ESSENTIAL ZINC PASTE 113 GM TP PRN (23:00)
[2022-08-08] MEDS ORDERED: DEXTROSE 50% 50 ML DISP.SYRIN IV PRN (23:00)
--- NOTE | 2022-08-08 23:50 | NUR ---
Patient in transition. Moved to ICU bed 1A. Norah SEARS aware of patients arrival to unit.
[2022-08-09] MEDS ORDERED: VANCOMYCIN FOR PO/GT/NG USE PO SCH
--- NOTE | 2022-08-09 00:42 | NUR ---
Call blood bank for second unit. Informed that it is not available. Not more units available at this time. Notified Norah SEARS.
[2022-08-09] MEDS: HYDROCODONE/APAP 5-325MG TABLET PO PRN (01:45)
[2022-08-09 01:52] LABS: POTASSIUM 6.8 mmol/L (3.5-5.1)
[2022-08-09 01:53] LABS: CREATININE 16.6 mg/dL (0.6-1.3)
[2022-08-09] MEDS ORDERED: HYDROCODONE/APAP 5-325MG TABLET ONE (02:05)
--- NOTE | 2022-08-09 03:45 | NUR ---
Elevate HOB Addendum: 08/09/22 at 0346 by [facility] RN1 RN Amended: Links added.
[2022-08-09] MEDS ORDERED: PANTOPRAZOLE SODIUM 40 MG TABLET.DR PO SCH (07:00)
[2022-08-09] MEDS: BLOOD SUGAR DIAGNOSTIC 1 EACH STRIP VI SCH ×4 (07:30→20:24)
[2022-08-09] MEDS ORDERED: FERROUS SULFATE 325 MG TABEC PO SCH (09:00)
[2022-08-09] MEDS ORDERED: levoFLOXacin 500 MG TABLET PO ONE (09:00)
[2022-08-09 09:01] LABS: MEAN CORPUSCULAR HEMOGLOBIN 30.9 uug (23.8-33.4); MEAN CORPUSCULAR VOLUME 90.5 fL (73.0-96.2); PLATELET COUNT (AUTO) 133 K/uL (152-348)
[2022-08-09 09:05] LABS: HEMATOCRIT 15.7 % (36.7-47.1)
[2022-08-09 09:19] LABS: THYROID STIMULATING HORMONE 0.636 mIU/mL (0.358-3.740)
[2022-08-09 09:22] LABS: MAGNESIUM 2.2 mg/dL (1.8-2.4); PHOSPHOROUS 5.5 mg/dL (2.5-4.9); POTASSIUM 5.3 mmol/L (3.5-5.1)
[2022-08-09 09:25] LABS: CREATININE 12.3 mg/dL (0.6-1.3)
[2022-08-09 09:36] LABS: LYMPHOCYTES % (MANUAL) 8 % (20-40); MONOCYTES % (MANUAL) 2 % (2-10); NEUTROPHILS % (MANUAL) 90 % (42-75)
[2022-08-09] MEDS ORDERED: PANTOPRAZOLE SODIUM 40 MG TABLET.DR PO ONE (09:38)
[2022-08-09] MEDS ORDERED: SOD FERRIC GLUC COMPLX/SUCROSE 62.5 MG/5 ML AMPUL IV ONE (09:38)
[2022-08-09] MEDS ORDERED: FUROSEMIDE 40 MG TABLET ONE (09:38)
[2022-08-09] MEDS ORDERED: GABAPENTIN 300 MG CAPSULE ONE (09:46)
[2022-08-09] MEDS ORDERED: levoFLOXacin 500 MG TABLET ONE (09:47)
[2022-08-09] MEDS: FUROSEMIDE 40 MG TABLET PO SCH (09:51)
[2022-08-09] MEDS: GABAPENTIN 300 MG CAPSULE PO SCH (09:52)
[2022-08-09] MEDS: FERROUS SULFATE 325 MG TABEC PO SCH (09:53)
--- NOTE | 2022-08-09 11:17 | NUR ---
WOUND CARE CONSULT: RECEIVED CONSULT FOR FEET FROM MASON DEUTSCH NP. PT PRESENTS WITH CRUSTED WOUNDS TO BILATERAL FEET, PRESENT ON ADMISSION. DR RODGERS CALLED FOR DPM CONSULT. IN AGREEMENT WITH PLAN OF CARE.
[2022-08-09] MEDS: VANCOMYCIN FOR PO/GT/NG USE PO SCH ×2 (12:00→19:53)
[2022-08-09 14:19] LABS: HEMATOCRIT 16.1 % (36.7-47.1)
--- NOTE | 2022-08-09 17:28 | NUR ---
Wound debridement done at bedside - cultures taken and sent to the lab Echo being done report given pt being transferred to room # 307 pt dry heaving bleeding through dressing - will redress pts wound.
[2022-08-09] MEDS ORDERED: ATORVASTATIN 40 MG TABLET PO SCH (18:00)
[2022-08-09 18:50] VITALS: BP 142/66
[2022-08-09] MEDS: ONDANSETRON 4 MG/2 ML VIAL IV PRN ×2 (18:54→19:57)
--- NOTE | 2022-08-09 19:04 | NUR ---
Received patient alert and oriented x 3-4. Patient arrived on unit and in bed. Vital signs done. Will endorse information to PM nurse.
--- NOTE | 2022-08-09 19:30 | NUR ---
Received report from day shift RN that patient is transferred here at the unit from ICU to telemetry status at 1849. Admission from ICU not done. Received patient in bed. AAOX4. In no apparent distress. Stated has pain on BLE 7/10 and is tolerable at this time. per patient he can tolerated pain up to scale of 8/10. Refused any pain medication at this time. Denies any SOB. O2 sat at 93% on RA. Dialysis site on right upper chest area with dressing intact. dry and clean. IV site on right AC intact and patent. NSR on tele with HR of 74/min. Routine admission care done. Plan of care initiated. Safety measure initiated and call light within reached. Continue to monitor.
[2022-08-09 20:00] VITALS: BP 146/73
[2022-08-09] MEDS: PANTOPRAZOLE SODIUM 40 MG VIAL IV SCH (20:20)
[2022-08-09] MEDS: ATORVASTATIN 40 MG TABLET PO SCH (20:20)
--- NOTE | 2022-08-09 21:50 | NUR ---
Telephone call to lab spoke to Octavio to find out if blood is ready for transfusion, stated there is no CLS to release blood till 0600.
[2022-08-09] MEDS ORDERED: VANCOMYCIN IV 1,500 MG in IV DEXTROSE 5% 500 ML IV ONE (22:00)
[2022-08-09] MEDS ORDERED: VANCOMYCIN 1000 MG VIAL ONE (23:11)
[2022-08-09] MEDS ORDERED: VANCOMYCIN HCL 500 MG VIAL ONE (23:11)
--- NOTE | 2022-08-09 23:11 | NUR ---
IHSAN Castle following up if patient has gotten blood transfusion. Informed him that patient had received 2 unit today at around 0400, but patient need 1 more unit of blood and informed about lab issue that no CLS to release blood. Also informed Ski Guide and will follow up with lab.
[2022-08-10] VITALS (25 sets, daily range): BP systolic 14–188; BP diastolic 63–102
--- NOTE | 2022-08-10 | NUR ---
Telephone call from [facility]/Octavio and stated that he had spoken to the nonprofit manager and that someone will be able to release blood but not until between 3-4am. Informed IHSAN Castle.
[2022-08-10] MEDS: VANCOMYCIN FOR PO/GT/NG USE PO SCH ×4 (00:51→17:27)
[2022-08-10] MEDS: ONDANSETRON 4 MG/2 ML VIAL IV PRN (02:06)
--- NOTE | 2022-08-10 02:28 | NUR ---
Patient refused to be NPO, stated he needed something to eat now as he was not able to eat dinner last night. Explain why he needs to be NPO but patient continue to insist. [place] provided.
--- NOTE | 2022-08-10 05:00 | NUR ---
Received 1unit of pRBC from lab for transfusion.
--- NOTE | 2022-08-10 05:13 | NUR ---
Transfusion of 1 unit pRBC started. Monitor for any side effect. VS WNL. Denies any pain or SOB.
--- NOTE | 2022-08-10 06:00 | NUR ---
Pt remains AAOx4. In no acute distress. No side effect noted from blood transfusion. Still ongoing. NSR on tele with HR of 71/min. Zofran given for complain of nausea and effective. No adverse effect noted from IV and PO antibiotic. Needs attended to and met. Safety measure maintained and call light within reached.
[2022-08-10] MEDS: BLOOD SUGAR DIAGNOSTIC 1 EACH STRIP VI SCH ×4 (06:43→20:48)
--- NOTE | 2022-08-10 07:35 | NUR ---
Received patient still receiving 1 unit of PRBC. Patient at end of blood transfusion. Recent vitals taken.
[2022-08-10 08:06] LABS: HEPATITIS B SURFACE AG Negative (Negative)
[2022-08-10] MEDS: FUROSEMIDE 40 MG TABLET PO SCH (08:22)
[2022-08-10] MEDS: PANTOPRAZOLE SODIUM 40 MG VIAL IV SCH ×2 (08:26→20:44)
[2022-08-10] MEDS: GABAPENTIN 300 MG CAPSULE PO SCH (08:26)
[2022-08-10] MEDS: INSULIN REGULAR, HUMAN 300 UNIT/3 ML VIAL SQ PRN (08:32)
[2022-08-10] MEDS: ACETAMINOPHEN 325 MG TABLET PO PRN (09:17)
--- NOTE | 2022-08-10 09:46 | NUR ---
Patient refusing NPO status. Requesting for meal this morning. Meal provided to patient. NPO status originally for possible MRI.
--- NOTE | 2022-08-10 09:50 | NUR ---
NPO status for EGD, but after speaking to Daniel CHAMPAGNE, awaiting for H&H to increase before then. Patient will then be put on NPO status.
--- NOTE | 2022-08-10 10:04 | NUR ---
TEXT DR. SOTO FOR MRI APPROVAL
[2022-08-10] MEDS: FERROUS SULFATE 325 MG TABEC PO SCH (11:19)
[2022-08-10 14:25] LABS: MEAN CORPUSCULAR HEMOGLOBIN 30.5 uug (23.8-33.4); MEAN CORPUSCULAR VOLUME 92.4 fL (73.0-96.2); PLATELET COUNT (AUTO) 134 K/uL (152-348)
[2022-08-10 14:32] LABS: NEUTROPHILS % (MANUAL) 0 % (42-75)
[2022-08-10 15:16] LABS: BILIRUBIN,DIRECT 0.2 mg/dL (0.0-0.2); BILIRUBIN,TOTAL 0.6 mg/dL (0.2-1.0); MAGNESIUM 2.5 mg/dL (1.8-2.4); TOTAL PROTEIN, SERUM 6.8 g/dL (6.4-8.2)
[2022-08-10 15:23] LABS: CREATININE 13.8 mg/dL (0.6-1.3); PHOSPHOROUS 8.4 mg/dL (2.5-4.9); POTASSIUM 6.4 mmol/L (3.5-5.1)
--- NOTE | 2022-08-10 17:23 | NUR ---
Patient receiving 1 PRBC through dialysis.
--- NOTE | 2022-08-10 17:30 | NUR ---
Patient tolerated transfusions throughout shift with no complaints of pain or distress. IV site patent and intact. Permacath patent and intact. Bed left in lowest position with call light within reach. Comfort measures provided. Information endorsed to RENU Grant.
[2022-08-10] MEDS: hydrALAZINE HCL 20 MG/1 ML VIAL IV PRN (18:11)
[2022-08-10] MEDS ORDERED: PANT40TA49 PO (18:14)
[2022-08-10] MEDS ORDERED: GENTAMICIN SULFATE IV ONE ×2 (18:30→20:00)
[2022-08-10] MEDS ORDERED: DEXTROSE 5% IV ONE ×2 (18:30→20:00)
[2022-08-10] MEDS: ATORVASTATIN 40 MG TABLET PO SCH (20:45)
[2022-08-11] MEDS: VANCOMYCIN FOR PO/GT/NG USE PO SCH ×5 (00:06→23:43)
[2022-08-11 00:44] VITALS: BP 154/75
[2022-08-11 04:56] VITALS: BP 164/76
[2022-08-11] MEDS: BLOOD SUGAR DIAGNOSTIC 1 EACH STRIP VI SCH ×4 (06:38→21:39)
[2022-08-11 07:06] LABS: HEMATOCRIT 23.2 % (36.7-47.1); MEAN CORPUSCULAR HEMOGLOBIN 30.2 uug (23.8-33.4); MEAN CORPUSCULAR VOLUME 90.9 fL (73.0-96.2); PLATELET COUNT (AUTO) 144 K/uL (152-348)
[2022-08-11 07:26] LABS: MAGNESIUM 2.2 mg/dL (1.8-2.4); PHOSPHOROUS 6.6 mg/dL (2.5-4.9); POTASSIUM 4.8 mmol/L (3.5-5.1)
[2022-08-11 07:54] LABS: GENTAMICIN,RANDOM 4.7 ug/mL (4.0-8.0); VANCOMYCIN,RANDOM 16.4 ug/mL (18.0-26.0)
[2022-08-11 08:21] LABS: CREATININE 9.3 mg/dL (0.6-1.3)
[2022-08-11] MEDS ORDERED: levoFLOXacin 250 MG TABLET PO SCH (09:00)
[2022-08-11] MEDS: FUROSEMIDE 40 MG TABLET PO SCH (09:46)
[2022-08-11] MEDS: GABAPENTIN 300 MG CAPSULE PO SCH (09:46)
[2022-08-11] MEDS: PANTOPRAZOLE SODIUM 40 MG VIAL IV SCH ×2 (09:46→21:11)
--- NOTE | 2022-08-11 10:20 | NUR ---
Old order for sodium bicarb x 2 not given by me.
[2022-08-11] MEDS: FERROUS SULFATE 325 MG TABEC PO SCH (10:25)
[2022-08-11] MEDS ORDERED: VANCOMYCIN IV 500 MG in IV DEXTROSE 5% 100 ML IV ONE (12:00)
[2022-08-11 12:05] VITALS: BP 174/80
[2022-08-11] MEDS: AMLODIPINE 5 MG TABLET PO SCH (15:32)
[2022-08-11 16:04] VITALS: BP 166/84
[2022-08-11] MEDS: INSULIN REGULAR, HUMAN 300 UNIT/3 ML VIAL SQ PRN (17:16)
[2022-08-11 17:34] VITALS: BP 166/84
[2022-08-11 20:00] VITALS: BP 144/69
[2022-08-11] MEDS: ATORVASTATIN 40 MG TABLET PO SCH (21:11)
[2022-08-11] MEDS ORDERED: HOME MED MISCELLANEOUS XX PRN (22:00)
[2022-08-12] VITALS: BP 122/72
[2022-08-12 04:00] VITALS: BP 166/92
[2022-08-12] MEDS: VANCOMYCIN FOR PO/GT/NG USE PO SCH ×4 (05:30→23:26)
[2022-08-12 06:30] LABS: HEMATOCRIT 22.9 % (36.7-47.1); MEAN CORPUSCULAR HEMOGLOBIN 30.9 uug (23.8-33.4); PLATELET COUNT (AUTO) 132 K/uL (152-348)
[2022-08-12 07:00] LABS: MAGNESIUM 2.2 mg/dL (1.8-2.4); PHOSPHOROUS 7.3 mg/dL (2.5-4.9); POTASSIUM 4.7 mmol/L (3.5-5.1)
[2022-08-12 07:16] LABS: CREATININE 8.3 mg/dL (0.6-1.3)
[2022-08-12] MEDS ORDERED: VANCOMYCIN IV 500 MG in IV DEXTROSE 5% 100 ML IV PRN (08:45)
[2022-08-12] MEDS: GABAPENTIN 300 MG CAPSULE PO SCH (08:46)
[2022-08-12] MEDS: FUROSEMIDE 40 MG TABLET PO SCH (08:46)
[2022-08-12] MEDS: AMLODIPINE 5 MG TABLET PO SCH (08:50)
[2022-08-12] MEDS: PANTOPRAZOLE SODIUM 40 MG VIAL IV SCH ×2 (08:52→20:40)
[2022-08-12] MEDS: BLOOD SUGAR DIAGNOSTIC 1 EACH STRIP VI SCH ×4 (09:16→20:45)
--- NOTE | 2022-08-12 10:38 | NUR ---
Social work consult was requested for a patient on medsurg to assess current living situation. Patient is 51-year-old male admitted to the hospital for missing dialysis the week prior. SW made an APS report (Intake ID [id number]) for self-neglect and placed a copy of the report in the patients chart. Patient is alert and oriented X4. Patient presents with anxious mood and congruent affect. Patient states his primary customer contact sales associate is his , Jeimy Oneill ([phone]) that lives with the patient at [id number] [place] [address], [address], [place] [address]. Patient states that he has a good relationship with his , Jeimy ([phone]) and states that his she is planning on changing her shifts for work to care for the patient. Patient denied abuse or neglect. Patient is currently unemployed and receiving social security disability. Patient is independent with his ADLs and is currently driving. Patient denies a history of substance abuse. There is no toxicology report. Patient denies a history of psychiatric diagnosis. Patient denies suicidal or homicidal ideation. Patient states that his plan for discharge is for his , Jeimy ([phone]) to pick him up and drive him home to [id number] [place] [address], [address], [place] [address].
[2022-08-12] MEDS: FERROUS SULFATE 325 MG TABEC PO SCH (11:20)
[2022-08-12] MEDS ORDERED: HYDROMORPHONE 1 MG/1 ML DISP.SYRIN IV ONE (11:30)
--- NOTE | 2022-08-12 11:30 | NUR ---
Pt. was alert and oriented x4. pt. was picked up at 1130. Prior to lab support service tech BP 180/99 and HR 84 and pt. was asymptomatic. Reported to Dr. Castle and new order received and carried out. per Dr. Castle was ok to send pt. to MRI after medication administered
[2022-08-12 11:32] VITALS: BP 182/93
[2022-08-12] MEDS: ACETAMINOPHEN 325 MG TABLET PO PRN (11:39)
[2022-08-12 11:58] LABS: *OCCULT BLOOD STOOL NEGATIVE (NEGATIVE)
[2022-08-12] MEDS: hydrALAZINE HCL 20 MG/1 ML VIAL IV PRN (15:05)
--- NOTE | 2022-08-12 15:10 | NUR ---
Noted BP 179/94 HR 81. Reported to AVIATION PROJECT MANAGER Daniel Castle and pt. has order for PRN BP medication. Order was administered and will keep monitoring resident.
[2022-08-12 16:00] VITALS: BP 160/81
--- NOTE | 2022-08-12 19:30 | NUR ---
Received patient sitting in bed. AAOX4. In no apparent distress. Denies any pain or SOB. Perma cath on right upper chest area with dressing intact, dry and clean. IV site on right AC intact and patent. NSR on tele with HR on 78/min. Dressing on cassandra foot removed by MD per pt. Will do treatment per order. Needs assessed and attended to. Safety measure initiated and call light within reached.
[2022-08-12 20:00] VITALS: BP 148/81
[2022-08-12] MEDS: GENTAMICIN SULFATE 0.1% OINT 15 GM TUBE TOP SCH (20:39)
[2022-08-12] MEDS: MUPIROCIN 2% OINT 22 GM TUBE TP SCH (20:39)
[2022-08-12] MEDS: ATORVASTATIN 40 MG TABLET PO SCH (20:40)
[2022-08-12] MEDS: INSULIN REGULAR, HUMAN 300 UNIT/3 ML VIAL SQ PRN (20:47)
[2022-08-13] VITALS: BP 133/68
[2022-08-13 04:00] VITALS: BP 158/81
--- NOTE | 2022-08-13 05:17 | NUR ---
Patient slept well during the night. No complain of pain or SOB. NSR on tele with HR of 86/min. No adverse reaction noted from PO antibiotic. Needs attended to and met. Safety measure maintained and call light within reached.
[2022-08-13 06:09] LABS: HEMATOCRIT 23.2 % (36.7-47.1); MEAN CORPUSCULAR HEMOGLOBIN 30.3 uug (23.8-33.4); MEAN CORPUSCULAR VOLUME 93.1 fL (73.0-96.2); PLATELET COUNT (AUTO) 131 K/uL (152-348)
[2022-08-13] MEDS: VANCOMYCIN FOR PO/GT/NG USE PO SCH ×4 (06:11→23:14)
[2022-08-13 06:36] LABS: GENTAMICIN,RANDOM 2.4 ug/mL (4.0-8.0); MAGNESIUM 2.2 mg/dL (1.8-2.4); POTASSIUM 5.1 mmol/L (3.5-5.1); VANCOMYCIN,RANDOM 19.1 ug/mL (18.0-26.0)
[2022-08-13] MEDS: BLOOD SUGAR DIAGNOSTIC 1 EACH STRIP VI SCH ×4 (06:36→20:32)
[2022-08-13 06:45] LABS: CREATININE 9.6 mg/dL (0.6-1.3); PHOSPHOROUS 8.9 mg/dL (2.5-4.9)
--- NOTE | 2022-08-13 08:30 | NUR ---
Pt is in no acute distress. discussed plan of care with patient re: pain management and fall precaution. Pt agreeable with plan of care. Call light is within reach.
[2022-08-13] MEDS: GABAPENTIN 300 MG CAPSULE PO SCH (09:12)
[2022-08-13] MEDS: FERROUS SULFATE 325 MG TABEC PO SCH (09:12)
[2022-08-13] MEDS: PANTOPRAZOLE SODIUM 40 MG VIAL IV SCH ×2 (09:12→20:32)
[2022-08-13] MEDS: FUROSEMIDE 40 MG TABLET PO SCH (09:12)
[2022-08-13] MEDS: GENTAMICIN SULFATE 0.1% OINT 15 GM TUBE TOP SCH (09:13)
[2022-08-13] MEDS: AMLODIPINE 5 MG TABLET PO SCH (09:13)
[2022-08-13] MEDS: MUPIROCIN 2% OINT 22 GM TUBE TP SCH (09:13)
[2022-08-13 11:45] VITALS: BP 171/80
[2022-08-13] MEDS ORDERED: VANCOMYCIN IV 500 MG in IV DEXTROSE 5% 100 ML IV ONE (12:00)
--- NOTE | 2022-08-13 12:02 | NUR ---
Pt tolerated HD. 2000cc taken out per HD RN. Pt is in no acute distress.
[2022-08-13] MEDS ORDERED: DOSING PER PHARMACY-AMIKACIN IV XX PRN (12:30)
[2022-08-13] MEDS: INSULIN REGULAR, HUMAN 300 UNIT/3 ML VIAL SQ PRN ×2 (12:53→16:55)
[2022-08-13] MEDS ORDERED: GENTAMICIN SULFATE INJ 150 MG in IV DEXTROSE 5% 100 ML IV ONE (13:00)
[2022-08-13] MEDS ORDERED: AMIKACIN 500 MG in IV DEXTROSE 5% 100 ML IV ONE (13:00)
[2022-08-13 15:50] VITALS: BP 165/81
--- NOTE | 2022-08-13 16:45 | NUR ---
Pt stating that he is having the "runs" pt had x 2 diarrhea
--- NOTE | 2022-08-13 18:28 | NUR ---
Called lab to follow up on Hepatitis B order today via Zack. Awaiting call back.
--- NOTE | 2022-08-13 18:33 | NUR ---
budget technician here to draw blood for Hep B.
--- NOTE | 2022-08-13 19:46 | NUR ---
Received patient lying in bed asleep but easily arouse to verbal stimuli. AAOX4. In no acute distress. Denies any pain or SOB. NSR on tele with HR on 76/min. Dressing on bilateral foot clean, dry and intact. Needs assessed and attended to. Safety measure initiated and call light within reached.
[2022-08-13 20:00] VITALS: BP 161/82
[2022-08-13] MEDS: ATORVASTATIN 40 MG TABLET PO SCH (20:32)
--- NOTE | 2022-08-13 20:49 | NUR ---
Noted peripheral IV on right AC leaking. Placed new IV on right hand #22G. Discontinued the one on the right AC. Procedure well tolerated by patient.
[2022-08-13] MEDS: ACETAMINOPHEN 325 MG TABLET PO PRN (20:52)
[2022-08-14] VITALS: BP 153/76
[2022-08-14] MEDS ORDERED: DIPHENOXYLATE HCL/ATROP SULF TABLET PO PRN ×2 (03:30→06:15)
--- NOTE | 2022-08-14 03:31 | NUR ---
patient reported having LBMx5 since last night. Informed HAIR AND MAKEUP DESIGNER Bataclan and order to collect stool for C. diff and give Lomotil 1 tab PO every 6 hours PRN for diarrhea. Order noted and will carry out. Isolation precaution initiated.
[2022-08-14 04:00] VITALS: BP 152/70
[2022-08-14] MEDS: VANCOMYCIN FOR PO/GT/NG USE PO SCH ×3 (05:21→17:09)
--- NOTE | 2022-08-14 06:18 | NUR ---
No further LBM after taking Lomotil. No complain of pain or SOB. NSR on tele with HR of 88/min. Needs attended to and met. Safety measure maintained and call light within reached.
[2022-08-14] MEDS: BLOOD SUGAR DIAGNOSTIC 1 EACH STRIP VI SCH ×4 (06:32→21:40)
[2022-08-14] MEDS: GABAPENTIN 300 MG CAPSULE PO SCH (08:52)
[2022-08-14] MEDS: PANTOPRAZOLE SODIUM 40 MG VIAL IV SCH ×2 (08:52→21:27)
[2022-08-14] MEDS: FUROSEMIDE 40 MG TABLET PO SCH (08:53)
[2022-08-14] MEDS: MUPIROCIN 2% OINT 22 GM TUBE TP SCH (08:55)
[2022-08-14] MEDS: AMLODIPINE 5 MG TABLET PO SCH (08:57)
[2022-08-14] MEDS: FERROUS SULFATE 325 MG TABEC PO SCH (11:25)
[2022-08-14 11:48] VITALS: BP 143/78
[2022-08-14 16:03] VITALS: BP 135/72
--- NOTE | 2022-08-14 18:20 | NUR ---
Patient tolerated care well during shift with no complaints of pain or distress. IV site patent and intact. Patient received hemodialysis during shift, with a total output of 2L. Vital signs stable. No complaints of pain or distress. Bed left in lowest position with call light within reach. Comfort measures provided. Will endorse information to PM nurse.
[2022-08-14 20:00] VITALS: BP 158/83
[2022-08-14] MEDS: ATORVASTATIN 40 MG TABLET PO SCH (21:27)
[2022-08-14] MEDS: CALCIUM ACETATE 667 MG CAP/TAB PO SCH (21:28)
[2022-08-15] VITALS: BP 165/85
[2022-08-15] MEDS: VANCOMYCIN FOR PO/GT/NG USE PO SCH ×4 (00:31→17:30)
--- NOTE | 2022-08-15 02:45 | NUR ---
Notify Mega Dixon that patient still having diarrhea, and pharmacy suggested mallyran instread of Lomotil, bec patient on Vanco meds. awaiting for response.
--- NOTE | 2022-08-15 03:49 | NUR ---
Mega Dixon ordered lactinex po bid start now. ordered noted and carried out.
[2022-08-15] MEDS: ACIDOPHILUS/BULGARICUS CHEW TAB PO SCH ×2 (03:55→08:30)
[2022-08-15 04:00] VITALS: BP 175/96
[2022-08-15] MEDS: BLOOD SUGAR DIAGNOSTIC 1 EACH STRIP VI SCH ×3 (06:02→16:15)
--- NOTE | 2022-08-15 06:34 | NUR ---
Patient awake, alert oriented, on contact isolation for possible Cdiff infection, had four loose bowel movement, patient self care, cont Lactinex tab, no sob no chest pain, sinus rythm on tele, blood sugar stable, cont to monitor.
[2022-08-15 07:15] LABS: MEAN CORPUSCULAR HEMOGLOBIN 30.7 uug (23.8-33.4); MEAN CORPUSCULAR VOLUME 91.2 fL (73.0-96.2); PLATELET COUNT (AUTO) 165 K/uL (152-348)
[2022-08-15] MEDS: hydrALAZINE HCL 20 MG/1 ML VIAL IV PRN (07:23)
[2022-08-15 08:01] LABS: CREATININE 7.3 mg/dL (0.6-1.3); MAGNESIUM 2.3 mg/dL (1.8-2.4); PHOSPHOROUS 6.3 mg/dL (2.5-4.9); POTASSIUM 4.8 mmol/L (3.5-5.1)
[2022-08-15] MEDS: GABAPENTIN 300 MG CAPSULE PO SCH (08:30)
[2022-08-15] MEDS: MUPIROCIN 2% OINT 22 GM TUBE TP SCH (08:30)
[2022-08-15] MEDS: PANTOPRAZOLE SODIUM 40 MG VIAL IV SCH (08:30)
[2022-08-15] MEDS: FUROSEMIDE 40 MG TABLET PO SCH (08:30)
[2022-08-15] MEDS: AMLODIPINE 5 MG TABLET PO SCH (08:31)
[2022-08-15] MEDS: CALCIUM ACETATE 667 MG CAP/TAB PO SCH ×3 (08:31→17:30)
[2022-08-15] MEDS: FERROUS SULFATE 325 MG TABEC PO SCH (10:26)
[2022-08-15] MEDS: HYDROCODONE/APAP 5-325MG TABLET PO PRN (10:27)
[2022-08-15] MEDS ORDERED: CHOLESTYRAMINE/SUCROSE 4 GM PACKET PO SCH (10:30)
[2022-08-15] MEDS: INSULIN REGULAR, HUMAN 300 UNIT/3 ML VIAL SQ PRN (11:15)
[2022-08-15] MEDS ORDERED: VANCOMYCIN IV 2,000 MG in IV DEXTROSE 5% 500 ML IV ONE (13:00)
[2022-08-15] MEDS ORDERED: RXAMI XX (13:19)
[2022-08-15] MEDS ORDERED: CALC667C6 PO (13:19)
[2022-08-15] MEDS ORDERED: CHOL4PAC2 PO (13:19)
[2022-08-15] MEDS ORDERED: AMLO-212 PO (13:19)
[2022-08-15] MEDS ORDERED: VANC500V PO (13:19)
[2022-08-15] MEDS ORDERED: FERR325T28 PO (13:19)
[2022-08-15] MEDS ORDERED: ATOR40TA PO (13:19)
[2022-08-15] MEDS ORDERED: ACID1TAB4 PO (13:19)
[2022-08-15] MEDS ORDERED: MUPI22OI2 TP (13:19)
[2022-08-15] MEDS ORDERED: ACIDOPHILUS/BULGARICUS CHEW TAB PO SCH (14:00)
[2022-08-15 15:11] VITALS: BP 143/64
--- NOTE | 2022-08-15 16:16 | NUR ---
Patient refusing insulin coverage. Blood sugar at 132.
--- NOTE | 2022-08-15 18:15 | NUR ---
Patient discharged from unit at 1800. IV site removed. ID band removed. Discharge education provided.
== END 2022-08-15 18:00 | disposition home health service (06) | DRG 253 ==
LOC: ER 17:29 → TRANSITION 22:42 → TELE3 08-09 18:40 → MEDSURG3 08-15 09:22
PROVIDERS: ADMIT Nurse Practitioner Family; ATTEND Nurse Practitioner Acute Care
PROC: 5A1D70Z Performance of Urinary Filtration, Intermittent, Less than 6 Hours Per Day (ICD-10-PCS; principal; 2022-08-08)
PROC: 30233N1 Transfusion of Nonautologous Red Blood Cells into Peripheral Vein, Percutaneous Approach (ICD-10-PCS; principal; 2022-08-08)
PROC: 0JBQ3ZZ Excision of Right Foot Subcutaneous Tissue and Fascia, Percutaneous Approach (ICD-10-PCS; 2022-08-09)
PROC: 0JBR3ZZ Excision of Left Foot Subcutaneous Tissue and Fascia, Percutaneous Approach (ICD-10-PCS; 2022-08-09)
DX: K92.2 Gastrointestinal hemorrhage, unspecified (principal); G92.8 Other toxic encephalopathy; D68.59 Other primary thrombophilia; D69.6 Thrombocytopenia, unspecified; D69.1 Qualitative platelet defects; A04.72 Enterocolitis due to Clostridium difficile, not specified as recurrent; I13.2 Hypertensive heart and chronic kidney disease with heart failure and with stage 5 chronic kidney disease, or end stage renal disease; E83.39 Other disorders of phosphorus metabolism; N18.6 End stage renal disease; L97.418 Non-pressure chronic ulcer of right heel and midfoot with other specified severity; E87.79 Other fluid overload; L97.428 Non-pressure chronic ulcer of left heel and midfoot with other specified severity; D50.0 Iron deficiency anemia secondary to blood loss (chronic); E11.22 Type 2 diabetes mellitus with diabetic chronic kidney disease; Z91.15 Patient's noncompliance with renal dialysis; E87.5 Hyperkalemia; Z99.2 Dependence on renal dialysis; E11.42 Type 2 diabetes mellitus with diabetic polyneuropathy; E11.621 Type 2 diabetes mellitus with foot ulcer; Z20.822 Contact with and (suspected) exposure to COVID-19; F32.A Depression, unspecified; Z83.3 Family history of diabetes mellitus; R53.1 Weakness; K27.9 Peptic ulcer, site unspecified, unspecified as acute or chronic, without hemorrhage or perforation; I89.0 Lymphedema, not elsewhere classified; Z79.4 Long term (current) use of insulin; I87.8 Other specified disorders of veins; D50.9 Iron deficiency anemia, unspecified; Z74.09 Other reduced mobility; M84.475A Pathological fracture, left foot, initial encounter for fracture; N25.0 Renal osteodystrophy; J45.909 Unspecified asthma, uncomplicated; I50.9 Heart failure, unspecified; Z86.19 Personal history of other infectious and parasitic diseases; Z91.199 Patient's noncompliance with other medical treatment and regimen due to unspecified reason; M84.474A Pathological fracture, right foot, initial encounter for fracture
CPT/HCPCS: 36415; 70030-TC; 71045; 73630; 73721; 83550; 83605; 83690; 83735; 84100; 84443; 84484; 85018; 85025; 85651; 85730; 86140; 86704; 86706; 86850; 86900; 86901; 86920; 87040; 87070; 87077; 87340; 90937; 93005; 93307; 97161; A4663; C9113; G0378; J0278; J0360; J0610; J1170; J1580; J1815; J2405; J2916; J3370; J3490; J7040; J7060; J7070; P9016